=== PATIENT | female | born 2000 | race Caucasian/White ===

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

== ENCOUNTER 2018-11-18 18:59 | Emergency (ER) | payer OTHER ==
[~2018-11-18] VITALS: Ht 157.5 cm; Wt 62.1 kg
[~2018-11-18 18:59] MED LIST: CLIN300C10 PO; HYDR-4011 PO; IBUP-1542 PO; VIGA LEFT EYE
[2018-11-18 19:05] VITALS: Ht 157.5 cm; Wt 62.1 kg
[2018-11-18] MEDS ORDERED: SODIUM CHLORIDE 0.9% 1L BAG IV* STA (19:11)
[2018-11-18] MEDS ORDERED: CEFTRIAXONE 1 GM/50 ML (PMX) 50 ML IVPB STA (19:11)
[2018-11-18] MEDS ORDERED: ACETAMINOPHEN 325 MG TAB PO STA (19:11)
--- NOTE | 2018-11-18 20:46 | ERD ---
ER Documentation Chief Complaint Chief Complaint RIGHT SIDED FLANK PAIN, DYSURIA WITH CHILLS X3DAYS HPI This very pleasant 18-year female with right-sided flank pain dysuria and chills for 3 days. Denies any fevers. Mild nausea but no vomiting. No other current complaints. Pain is mild to moderate intensity no exacerbating relieving factors. ROS All systems reviewed and are negative except as per history of present illness. Medications Home Meds Active Scripts Hydrocodone/Acetaminophen ([place] 5-325 Tablet) 1 Each Tablet, 1 TAB PO Q6H PRN for PAIN, #20 TAB Prov:GEETA LEONARD NP 01/15/17 Ibuprofen* (Motrin*) 600 Mg Tab, 600 MG PO Q6H PRN for PAIN AND OR ELEVATED TEMP, #30 TAB Prov:GEETA LEONARD NP 01/15/17 Moxifloxacin Hcl* (Vigamox*) 0.5% - 3 Ml Opht, 1 DROP LEFT EYE TID, #1 EA Prov:GEETA LEONARD NP 01/15/17 Clindamycin Hcl* (Clindamycin Hcl*) 300 Mg Capsule, 300 MG PO TID for 10 Days, CAP Prov:GEETA LEONARD NP 01/15/17 Reported Medications [none] Unknown Strength No Conflict Check 01/15/17 Allergies Allergies: Coded Allergies: No Known Allergy (Unverified , 04/12/17) PMhx/Soc History of Surgery: Yes (appendectomy) Anesthesia Reaction: No Hx Neurological Disorder: No Hx Respiratory Disorders: No Hx Cardiac Disorders: No Hx Psychiatric Problems: No Hx Miscellaneous Medical Probl: No Hx Alcohol Use: No Hx Substance Use: No Hx Tobacco Use: No Physical Exam Vitals Vital Signs Date Temp Pulse Resp B/P (MAP) Pulse Ox O2 O2 Flow FiO2 Time Delivery Rate 11/18/18 103.0 20:14 11/18/18 103.0 130 19 116/65 98 19:05 (82) Physical Exam Const: No acute distress Head: Atraumatic Eyes: Normal Conjunctiva ENT: Normal External Ears, Nose and Mouth. Neck: Full range of motion. No meningismus. Resp: Clear to auscultation bilaterally Cardio: Regular rate and rhythm, no murmurs Abd: Soft, non tender, non distended. Normal bowel sounds Skin: No petechiae or rashes Back: No midline or flank tenderness Ext: No cyanosis, or edema Neur: Awake and alert Psych: Normal Mood and Affect Result Diagram: 11/18/182004 Results 24 hrs Laboratory Tests Test 11/18/18 20:03 11/18/18 20:05 11/18/18 20:06 POC Beta HCG, Qualitative NEGATIVE White Blood Count 12.3 10^3/ul Red Blood Count 4.10 10^6/ul Hemoglobin 11.8 g/dl Hematocrit 34.4 % Mean Corpuscular Volume 83.9 fl Mean Corpuscular Hemoglobin 28.8 pg Mean Corpuscular 34.3 g/dl Hemoglobin Concent Red Cell Distribution Width 13.1 % Platelet Count 288 10^3/UL Mean Platelet Volume 8.3 fl Immature Granulocytes % 0.300 % Neutrophils % 82.2 % Lymphocytes % 7.7 % Monocytes % 9.0 % Eosinophils % 0.7 % Basophils % 0.1 % Nucleated Red Blood Cells % 0.0 /100WBC Immature Granulocytes # 0.040 10^3/ul Neutrophils # 10.1 10^3/ul Lymphocytes # 0.9 10^3/ul Monocytes # 1.1 10^3/ul Eosinophils # 0.1 10^3/ul Basophils # 0.0 10^3/ul Nucleated Red Blood Cells # 0.0 10^3/ul Prothrombin Time 13.0 Sec Prothrombin Time Ratio 1.0 INR International Normalized Ratio 0.97 Activated Partial Thromboplast 33.3 Sec Time POC Venous Lactate 0.8 mmol/L Current Medications Medications Dose Sig/Abbey Start Time Status Last (Trade) Ordered Route PRN Stop Time Admin Dose Reason Admin Sodium 1,860 ml BOLUS OVER 2 11/18/18 DC 11/18/18 Chloride HOURS STAT 19:11 20:13 (NS) IV* 11/18/18 19:12 650 mg ONCE STAT 11/18/18 DC 11/18/18 Acetaminophen PO 19:11 20:14 (Tylenol 11/18/18 19:12 Tab) Ceftriaxone 50 ml @ ONCE STAT 11/18/18 DC 11/18/18 Sodium 100 mls/hr IVPB 19:11 20:13 11/18/18 19:40 Procedures/MDM Medical decision [age]-year female with early pyelonephritis. Given a dose of Rocephin here. Stable for trial of outpatient management. Will be d ischarged home with Keflex and Bactrim. Follow with PCP. Return for worsening symptoms. Departure Diagnosis: Primary Impression: Pyelonephritis Condition: Stable AMY HILL November 18, 2018 20:46
[2018-11-18] MEDS ORDERED: CEPH-443 PO (20:56)
[2018-11-18] MEDS ORDERED: IBUP-1542 PO (20:56)
[2018-11-18] MEDS ORDERED: SULF1TAB31 PO (20:56)
[2018-11-18 22:15] VITALS: BP 101/67; PULSE 98; RESP 18
== END 2018-11-18 22:15 | disposition home or self-care (01) ==
LOC: E/R 18:59
DX: N12 Tubulo-interstitial nephritis, not specified as acute or chronic (principal)
CPT/HCPCS: 36415; 71045; 80053; 81001; 81025; 83605; 84484; 85025; 85610; 85730; 87040; 87086; 93005; 96374; J0696; J7030; Z7502; Z7610